=== PATIENT | male | born 1980 | race Caucasian/White ===

== ENCOUNTER → 2018-06-19 | Day surgery (SDC) | payer OTHER ==
[~2018-06-19] VITALS: Ht 177.8 cm; Wt 95.3 kg
[~2018-06-19] MED LIST: FLOMAX0.4 M1 PO
--- NOTE | 2018-06-19 12:47 | Operative Report ---
Operative/Inv Procedure Report Surgery Date: 06/19/18 Name of Procedure: Right ureter ESWL: fluoroscopy Pre-Operative Diagnosis: bilateral renal stones: right UPJ stone migrated to right mid-ureter Post-Operative Diagnosis: same Estimated Blood Loss: none Surgeon/Subscription Clerk: James Ocampo MD Anesthesia: moderate sedation Complications: none Operative/Procedure Note Note: The patient was taken to the operating room and placed on the ESWL table in supine position. With the patient awake, timeout was performed to cofirm correct identity, procedure, laterality, anesthesia, and other pertinent eugene- operative information. The patient was positioned over the ESWL table cut-out, overlying the dome of the shockwave generator, with on his right flank. C-arm fluroscopy, as well as renal US, was used to locate the stone, and evaluate the RIGHT kidney. The stone was visible on fluoroscopy at the right mid-ureter, measuring approximately 7 mm. Renal US confirmed mild hydronephrosis. No other stone/ tumor was visualized in the right kidney. After adequate anesthesia, the right ureter stone's position was optimized for Shockwave lithotrypsy using fluoroscopy in AP and oblique views. The E.S.W.L. was initiated at low power levels x 200 shocks. After noting the patient's tolerance to the shockwaves, the shock wave power level was quickly maximized. Toward the end of the procedure, the composition of the stone had changed significantly, indicating the pulverization of the ureter stone. A total of 3000 shockwaves were delivered to the stone in order to achieve adequate lithotrypsy. The patient tolerated both the procedure well, was awakened, and taken to recovery in satisfactory condition via stretcher. The pt will be dischared home with pain meds, diet orders, and intructions to catch fragments with straining the urine. The patient is to have follow-up renal ultrasound and KUB in 1-2 weeks, prior to follow-up visit in my office. Discharge Disposition: Same Day Admissions CC: James Ocampo MD
== END ==
LOC: STS 03:03
DX: N13.2 Hydronephrosis with renal and ureteral calculous obstruction (principal); Z87.442 Personal history of urinary calculi
CPT/HCPCS: J1100; J2250; J2405

== ENCOUNTER → 2018-07-24 | Day surgery (SDC) | payer OTHER ==
[~2018-07-24] VITALS: Ht 177.8 cm; Wt 90.7 kg
--- NOTE | 2018-07-24 19:06 | Operative Report ---
Operative/Inv Procedure Report Surgery Date: 07/24/18 Name of Procedure: RIGHT URETER eswL WITH FLUROSOCOPY: IV CONTRAST Pre-Operative Diagnosis: RIGHT HYDRO. RENAL COLIC Post-Operative Diagnosis: SAME Estimated Blood Loss: scant (S) Surgeon/Tailercpa: James Ocampo MD Anesthesia: general endotracheal tube Complications: NONE Operative Indication: SEVERE COLIC WITH RIGHT HYDRO. Operative/Procedure Note Note: The patient was taken to the operating room and placed on the ESWL table in supine position. With the patient awake, timeout was performed to cofirm correct identity, procedure, laterality, anesthesia, and other pertinent eugene- operative information. The patient was positioned over the ESWL table cut-out, overlying the dome of the shockwave generator, with on his right flank. C-arm fluroscopy, as well as renal US, was used to locate the stone, and evaluate the RIGHT kidney. The stone was NOT visible on fluoroscopy, requiring 50cc iv contrast. After 15 min, the contrast was noted to collect at the right mid-ureter, with a filling defect measuring approximately 7 mm. Renal US confirmed moderate hydronephrosis. After adequate anesthesia, the right ureter stone's position was optimized for Shockwave lithotrypsy; using fluoroscopy in AP and oblique views of the filling defect c/w stone. The E.S.W.L. was initiated at low power levels x 200 shocks. After noting the patient's tolerance to the shockwaves, the shock wave power level was quickly maximized. Toward the end of the procedure, the contrast drained quickly down to the bladder. A total of 3000 shockwaves were delivered to the stone in order to achieve adequate lithotrypsy. The patient tolerated both the procedure well, was awakened, and taken to recovery in satisfactory condition via stretcher. The pt will be dischared home with pain meds, diet orders, and intructions to catch fragments with straining the urine. The patient is to have follow-up renal ultrasound and KUB in 1-2 weeks, prior to follow-up visit in my office. Findings: IV contrast required to locate right distal ureter filling defect with proximal hydro.-drained iv contrast quickly post ESWL completed Discharge Disposition: PACU Additional Comments: f/u 6-8 weeks for RIGHT RENAL eswl. CC: James Ocampo MD
== END ==
LOC: STS 07:00
DX: N13.2 Hydronephrosis with renal and ureteral calculous obstruction (principal); K21.9 Gastro-esophageal reflux disease without esophagitis